=== PATIENT | male | born 1990 | race Caucasian/White ===

== ENCOUNTER 2018-03-14 17:03 | Emergency (ER) | payer OTHER ==
[~2018-03-14] VITALS: Ht 185.4 cm; Wt 97.3 kg
[~2018-03-14 17:03] MED LIST: BENTYL10 MG PO; CIPRO500 MG PO; NOHOMEMEDS
[2018-03-14 19:54] VITALS: BP 114/70
== END 2018-03-14 19:54 | disposition home or self-care (01) ==
LOC: EME 17:03
DX: S70.12XA Contusion of left thigh, initial encounter (principal); W23.0XXA Caught, crushed, jammed, or pinched between moving objects, initial encounter; Y93.H3 Activity, building and construction; Y99.0 Civilian activity done for income or pay; F17.200 Nicotine dependence, unspecified, uncomplicated
CPT/HCPCS: 73701; 99281; 99283